=== PATIENT | male | born 1940 | race American Indian/Alaskan Native ===

== ENCOUNTER 2017-04-06 17:22 | Emergency (ER) | payer MEDICARE ==
--- NOTE | 2017-04-06 18:36 | Emergency Department Report ---
ED Abdominal Pain HPI - General Chief Complaint: Abdominal Pain Stated Complaint: ABD PAIN Time Seen by Provider: 04/06/17 18:26 Source: EMS Mode of arrival: Stretcher Limitations: Altered Mental Status - History of Present Illness Initial Comments: stated that patient didn't have a bowel movement for two weeks. denied any nausea or vomiting. She stated that she been using lactulose but no relieve. MD Complaint: abdominal pain -: Gradual, week(s) (two) Location: diffuse Radiation: none Migration to: no migration Severity: mild Severity scale (0 -10): 2 Quality: fullness Consistency: constant - Related Data Home Medications Medication Instructions Recorded Confirmed Last Taken Hydrochlorothiazide [HCTZ] 12.5 mg PO QDAY 01/02/15 10/16/15 Unknown Aspirin [Adult Low Dose Aspirin EC] 81 mg PO DAILY 10/16/15 10/16/15 Unknown AtorvaSTATin [Lipitor] 20 mg PO HS 10/16/15 10/16/15 Unknown Cyclobenzaprine HCl [Flexeril 5 MG 5 mg PO BID 10/16/15 10/16/15 Unknown TAB] Oxybutynin [Ditropan] 5 mg PO DAILY 10/16/15 10/16/15 Unknown Oxycodone HCl/Acetaminophen 1 each PO BID 10/16/15 10/16/15 Unknown [Percocet 10/325 mg] Previous Rx's Medication Instructions Recorded Last Taken Type Clopidogrel [Plavix] 75 mg PO QDAY #30 tablet 03/17/13 06/23/14 Rx Lisinopril [Zestril TAB] 20 mg PO BID #30 tablet 03/17/13 06/23/14 Rx Memantine [Namenda] 5 mg PO BID #60 tablet 03/17/13 06/23/14 Rx amLODIPine [Norvasc] 5 mg PO QDAY #30 tablet 03/17/13 06/23/14 Rx metFORMIN [Glucophage] 1,000 mg PO BIDDIAB #60 tablet 03/17/13 06/23/14 Rx Allergies Allergy/AdvReac Type Severity Reaction Status Date / Time No Known Allergies Allergy Unverified 03/05/13 19:20 ED Review of Systems ROS: Stated complaint: ABD PAIN Other details as noted in HPI Comment: All other systems reviewed and negative Constitutional: denies: chills, fever Respiratory: denies: cough, shortness of breath, SOB with exertion Cardiovascular: denies: chest pain, palpitations Gastrointestinal: abdominal pain, constipation. denies: nausea, vomiting, diarrhea, hematemesis, melena, hematochezia Genitourinary: denies: urgency, frequency, hematuria Neurological: denies: headache, weakness ED Past Medical Hx - Past Medical History Hx Hypertension: Yes Hx CVA: Yes (residual left-sided deficit) Hx Congestive Heart Failure: No Hx Diabetes: Yes Hx Arthritis: Yes Hx Asthma: No Hx COPD: No Hx Dementia: Yes (alz) Hx HIV: No - Social History Smoking Status: Unknown if ever smoked - Medications Home Medications: Home Medications Medication Instructions Recorded Confirmed Last Taken Type Clopidogrel [Plavix] 75 mg PO QDAY #30 tablet 03/17/13 10/16/15 06/23/14 Rx Lisinopril [Zestril TAB] 20 mg PO BID #30 tablet 03/17/13 10/16/15 06/23/14 Rx Memantine [Namenda] 5 mg PO BID #60 tablet 03/17/13 10/16/15 06/23/14 Rx amLODIPine [Norvasc] 5 mg PO QDAY #30 tablet 03/17/13 10/16/15 06/23/14 Rx metFORMIN [Glucophage] 1,000 mg PO BIDDIAB #60 tablet 03/17/13 10/16/15 Rx Hydrochlorothiazide [HCTZ] 12.5 mg PO QDAY 01/02/15 10/16/15 Unknown History Aspirin [Adult Low Dose Aspirin EC] 81 mg PO DAILY 10/16/15 10/16/15 Unknown History AtorvaSTATin [Lipitor] 20 mg PO HS 10/16/15 10/16/15 Unknown History Cyclobenzaprine HCl [Flexeril 5 MG 5 mg PO BID 10/16/15 10/16/15 Unknown History TAB] Oxybutynin [Ditropan] 5 mg PO DAILY 10/16/15 10/16/15 Unknown History Oxycodone HCl/Acetaminophen 1 each PO BID 10/16/15 10/16/15 Unknown History [Percocet 10/325 mg] ED Physical Exam - General Limitations: Altered Mental Status General appearance: alert, in no apparent distress - Head Head exam: Present: atraumatic, normocephalic - Eye Eye exam: Present: normal appearance - ENT ENT exam: Present: normal exam - Neck Neck exam: Present: normal inspection - Respiratory Respiratory exam: Present: normal lung sounds bilaterally. Absent: respiratory distress, wheezes, rales, rhonchi, chest wall tenderness - Cardiovascular Cardiovascular Exam: Present: regular rate, normal rhythm, normal heart sounds - GI/Abdominal GI/Abdominal exam: Present: soft, normal bowel sounds. Absent: distended, tenderness, guarding, rebound, rigid, hyperactive bowel sounds, hypoactive bowel sounds, organomegaly, mass, bruit, pulsatile mass, hernia - Back Exam Back exam: Present: normal inspection. Absent: CVA tenderness (R), CVA tenderness (L) - Neurological Exam Neurological exam: Present: alert, altered (dementia patient) - Skin Skin exam: Present: warm, normal color ED Course Vital Signs 04/06/17 04/06/17 04/06/17 17:32 18:55 19:00 Temperature 98.6 F Pulse Rate 66 69 Respiratory 18 11 L Rate Blood Pressure 137/77 162/66 Blood Pressure [Left] O2 Sat by Pulse 98 91 94 Oximetry 04/06/17 04/06/17 04/06/17 19:15 19:30 19:41 Temperature Pulse Rate 70 67 Respiratory 11 L 11 L 16 Rate Blood Pressure 125/75 125/74 Blood Pressure [Left] O2 Sat by Pulse 97 96 Oximetry 04/06/17 04/06/17 19:45 19:52 Temperature 98.7 F Pulse Rate 61 65 Respiratory 9 L 19 Rate Blood Pressure 143/72 Blood Pressure 143/72 [Left] O2 Sat by Pulse 99 100 Oximetry ED Medical Decision Making - Lab Data Result diagrams: 04/06/17 19:59 04/06/17 19:59 - Radiology Data Radiology results: report reviewed CT abdomen and pelvis showed moderate amount of stool no evidence of bowel obstruction. Incidental finding left have a dense area in the left kidney neoplastic process cannot be ruled out patient would need to do dictated renal CT scan. This patient just got an IV contrast though not be done tonight. I informed the patient and his to follow-up with his primary care physician for renal CT scan for further evaluation of the possible left kidney mass that Xavier on the CT abdomen/pelvis. - Medical Decision Making labs reviewed without any acute abnormalities. I advised patient and indicated about constipation and how to prevent. We'll give a prescription for Fleet enema and advised patient to follow up with his primary care physician. Critical care attestation.: If time is entered above; I have spent that time in minutes in the direct care of this critically ill patient, excluding procedure time. ED Disposition Clinical Impression: Abdominal pain, Constipation Disposition: DC- TO HOME OR SELFCARE Is pt being admited?: No Condition: Stable Instructions: Constipation (ED) Additional Instructions: Patient will lose his primary care physician for dedicated CT renal to evaluate for a possible mass in the left kidney. Referrals: REBEKAH MCCORMICK MD [Primary Care Provider] - 3-5 Days
[2017-04-06 19:53] VITALS: BP 143/72
[2017-04-06 20:10] LABS: Basophils % (Auto) 0.7 % (0.0-1.8); Eosinophils % (Auto) 3.2 % (0.0-4.3); Hematocrit 40.3 % (35.5-45.6); Mean Corpuscular HGB Conc 32 % (32-34); Mean Corpuscular Hemoglobin 28 pg (28-32); Mean Corpuscular Volume 86 fl (84-94); Platelet Count 335 K/mm3 (140-440); Red Blood Count 4.68 M/mm3 (3.65-5.03); Red Cell Distribution Width 12.5 % (13.2-15.2); White Blood Count 8.8 K/mm3 (4.5-11.0)
[2017-04-06 20:52] LABS: Alanine Aminotransferase 29 units/L (7-56); Albumin 3.7 g/dL (3.9-5); Albumin/Globulin Ratio 0.9 %; Alkaline Phosphatase 119 units/L (35-129); Anion Gap 18 mmol/L; BUN/Creatinine Ratio 20; Blood Urea Nitrogen 18 mg/dL (9-20); Calcium 9.5 mg/dL (8.4-10.2); Carbon Dioxide 23 mmol/L (22-30); Chloride 100.2 mmol/L (98-107); Glucose 124 mg/dL (75-100); Lipase 20 units/L (13-60); Potassium 3.9 mmol/L (3.6-5.0); Sodium 137 mmol/L (137-145); Total Protein 7.7 g/dL (6.3-8.2)
--- NOTE | 2017-04-06 22:00 | Cat Scan Report ---
FINAL REPORT EXAM: CT ABDOMEN PELVIS W CON HISTORY: abdominal pain TECHNIQUE: Serial axial images through the abdomen and pelvis with coronal and sagittal reconstruction. Intravenous administration 100 milliliters Omnipaque 300 PRIORS: None. FINDINGS: There is atelectasis in the dependent portion of the lung bases. No pleural effusion is seen. No focal hepatic lesion is identified. Gallbladder appears normal. Pancreas appears normal. Spleen appears normal. Adrenal glands appear normal. There is a 16 millimeter low-density lesion in the left kidney with Hounsfield units measuring 27. There are additional hypodense foci in the kidneys, bilaterally, which are too small to definitely characterize. Atherosclerotic changes are seen in the aorta. No aneurysmal dilatation is seen. No gross abnormality is seen in the bladder. No free fluid. Moderate amount of stool is seen throughout the colon. Appendix appears normal. There is not evidence of bowel obstruction. There are degenerative changes in the spine. IMPRESSION: 1. There is a moderate amount of stool in the colon. There is not evidence of bowel obstruction at this time. 2. No free fluid or inflammatory changes are seen in the abdomen or pelvis. 3. Hypodense foci are seen in the kidneys which are too small to definitely characterize. 4. There is a hypodense focus in the left renal cortex with Hounsfield units measuring 27. This could represent proteinaceous cyst, but neoplastic process not excluded. This can be further assessed with dedicated renal mass protocol CT. [facility]
--- NOTE | 2017-04-07 08:01 | XRay Report ---
Abdominal series: Abdominal pain. The lungs are generally clear except for minimal focal atelectasis in the left midlung. The heart is normal in size for this poor degree of inspiration. No vascular congestion. Mildly tortuous aorta. There is a diffuse mild increase gas pattern throughout the bowel loops. Multiple air-fluid levels in the upright position which may mostly be in colon but also in small bowel. No free air and no soft tissue mass. Evidence of significant degenerative bone and lower lumbar disc narrowing. Impression: Nonspecific mild ileus pattern. Doubt obstruction.
== END 2017-04-06 23:28 | disposition home or self-care (01) ==
LOC: ED 17:22
DX: R10.9 Unspecified abdominal pain (principal); K59.00 Constipation, unspecified; I10 Essential (primary) hypertension
CPT/HCPCS: 36415; 74022; 74177; 80053; 83690; 85025; 99284; Q9967